=== PATIENT | male | born 1970 | race African-American/Black ===

== ENCOUNTER 2025-10-16 05:44 | Emergency (ER) | payer OTHER ==
[~2025-10-16] VITALS: Ht 177.8 cm; Wt 80.0 kg
[2025-10-16 05:47] VITALS: O2SAT 100
[2025-10-16] MEDS: ACETAMINOPHEN 325MG TABLET PO ONE (06:08)
[2025-10-16] MEDS: LIDOCAINE HCL 1% 20ML VIAL INFIL ONE (09:12)
[2025-10-16] MEDS ORDERED: IBUP-2028 PO (09:19)
[2025-10-16 09:58] VITALS: BP 134/66; PULSE 55; RESP 16; TEMP 36.8; O2SAT 100
== END 2025-10-16 09:59 | disposition home or self-care (01) ==
LOC: ER 06:04
DX: S01.312A Laceration without foreign body of left ear, initial encounter (principal); S06.0XAA Concussion with loss of consciousness status unknown, initial encounter; Z79.1 Long term (current) use of non-steroidal anti-inflammatories (NSAID); W19.XXXA Unspecified fall, initial encounter; Y93.02 Activity, running; Y92.89 Other specified places as the place of occurrence of the external cause; Y99.8 Other external cause status
CPT/HCPCS: 99284; 70450; J2003